=== PATIENT | female | born 1990 | race African-American/Black ===

== ENCOUNTER 2024-02-09 23:06 | Emergency (ER) | payer SELFPAY ==
[~2024-02-09] VITALS: Ht 167.6 cm; Wt 72.6 kg
[2024-02-09 23:06] VITALS: BP 120/63; PULSE 104; RESP 18; TEMP 97.9; O2SAT 100
[2024-02-09] MEDS: MORPHINE SULFATE 4 MG/ML SYR IM ONE (23:56)
[2024-02-10] MEDS: NACL 0.9% 1,000 ML IV ONE (00:42)
[2024-02-10] MEDS: PROPOFOL 200 MG/20 ML VIAL IV ONE (01:06)
[2024-02-10] MEDS ORDERED: IBUP-2213 PO (02:26)
[2024-02-10 02:36] VITALS: BP 120/63; PULSE 104; RESP 18; TEMP 97.9; O2SAT 100
== END 2024-02-10 02:36 | disposition home or self-care (01) ==
LOC: MED 23:06
DX: S43.004A Unspecified dislocation of right shoulder joint, initial encounter (principal); Z79.899 Other long term (current) drug therapy; X58.XXXA Exposure to other specified factors, initial encounter; Y93.89 Activity, other specified; Y92.89 Other specified places as the place of occurrence of the external cause; Y99.8 Other external cause status
CPT/HCPCS: 23650; 73020; 73030; 96360; 96372; 99152; 99285; J2270; J2704; J7030